=== PATIENT | male | born 1950 | race Caucasian/White ===

== ENCOUNTER 2018-05-05 10:40 | Inpatient (IN) | payer OTHER, MEDICARE ==
[~2018-05-05] VITALS: Ht 182.9 cm; Wt 103.4 kg
[2018-05-05] MEDS ORDERED: ONDANSETRON HCL 4MG/2ML INJ IV STA (11:01)
[2018-05-05] MEDS ORDERED: SODIUM CHLORIDE 0.9% 1,000 ML IV ONE (11:01)
[2018-05-05] MEDS ORDERED: MECLIZINE 25MG TABLET PO ONE (11:15)
[2018-05-05 11:25] LABS: HEMOGLOBIN. 15.1 g/dL (14.0-18.0); MEAN CORPUSCULAR HEMOGLOBIN 30.9 pg (28.0-32.0); MEAN CORPUSCULAR VOLUME 92.3 fL (80.0-94.0); MEAN PLATELET VOLUME 9.4 fl (7.4-10.4); PLATELET 185 x1000/uL (130-400); RED BLOOD CELL COUNT 4.88 mill/uL (4.7-6.1)
[2018-05-05 11:30] LABS: CHLORIDE 109 mEq/L (98-107)
[2018-05-05 11:31] LABS: PARTIAL THROMBOPLASTIN TIME 22.9 sec (23.4-31.0); PROTHROMBIN TIME 10.3 sec (9.1-11.1)
[2018-05-05] MEDS ORDERED: MAGNESIUM 1 G PREMIX 100 ML IV ONE (12:00)
[2018-05-05] MEDS ORDERED: POTASSIUM CHLORIDE 20MEQ TABLET SR PO ONE (12:00)
[2018-05-05 12:10] LABS: PLATELET ESTIMATE NORMAL
[2018-05-05] MEDS ORDERED: HYDROCODONE/ACETAMINOPHEN 5/325MG TABLET PO PRN (12:15)
[2018-05-05] MEDS ORDERED: MAGNESIUM/ALUMINUM HYDROXIDE/SIMETHICONE 30ML UDC PO PRN (12:15)
[2018-05-05] MEDS ORDERED: HYDROMORPHONE HCL/PF 2MG/ML CPJ IV PRN (12:15)
[2018-05-05] MEDS ORDERED: ACETAMINOPHEN 650MG/20.3ML UDC GT PRN (12:15)
[2018-05-05] MEDS ORDERED: ONDANSETRON HCL 4MG/2ML INJ IV PRN (12:15)
[2018-05-05] MEDS ORDERED: DIPHENHYDRAMINE 50MG/ML VIAL IV PRN (12:15)
[2018-05-05] MEDS ORDERED: IPRATROPIUM/ALBUTEROL 0.5-3(2.5)MG/3ML NEB INH PRN (12:15)
[2018-05-05] MEDS ORDERED: ACETAMINOPHEN 325MG TABLET PO PRN (12:15)
[2018-05-05] MEDS ORDERED: CLONIDINE 0.1MG TABLET PO PRN (12:15)
[2018-05-05] MEDS ORDERED: DOCUSATE SODIUM 100MG CAPSULE PO PRN (12:15)
[2018-05-05] MEDS ORDERED: LORAZEPAM 2MG/ML CPJ IV PRN (12:15)
[2018-05-05] MEDS ORDERED: GUAIFENESIN 200MG/10ML SUGAR FREE UDC PO PRN (12:15)
[2018-05-05] MEDS ORDERED: NA PHOS,M-B/NA PHOS,DI-BA ENEMA 118ML PR PRN (12:15)
[2018-05-05] MEDS: LEVOFLOXACIN 500MG PREMIX 100 ML IV SCH ×2 (13:22→15:00)
[2018-05-05] MEDS: ASPIRIN 81MG EC TABLET PO SCH (13:22)
[2018-05-05] MEDS: ENOXAPARIN 40MG/0.4ML SYR SUBCUT SCH (13:24)
[2018-05-05] MEDS ORDERED: ATROPINE SULFATE 1MG/ML VIAL IV PRN (14:45)
[2018-05-05] MEDS ORDERED: LISI-186 PO (15:59)
[2018-05-05] MEDS ORDERED: ATOR40TA70 PO (15:59)
[2018-05-05 16:00] VITALS: BP 112/63
[2018-05-05] MEDS ORDERED: GABA-531 PO (16:01)
[2018-05-05] MEDS: SODIUM CHLORIDE 0.45% 1,000 ML IV SCH (16:32)
[2018-05-05] MEDS ORDERED: DEXTROSE 50% WATER 50ML SYRINGE IV PRN (17:30)
[2018-05-05 18:33] VITALS: BP 112/63
[2018-05-05] MEDS ORDERED: MECLIZINE 25MG TABLET PO PRN (19:15)
[2018-05-05 19:18] LABS: *AMPHETAMINES SCREEN URINE NEGATIVE (NEGATIVE); *BARBITURATES SCREEN URINE NEGATIVE (NEGATIVE); *BENZODIAZEPINES SCREEN URINE NEGATIVE (NEGATIVE); *COCAINE SCREEN URINE NEGATIVE (NEGATIVE); CANNABINOID URINE SCREEN NEGATIVE (NEGATIVE); METHADONE URINE SCREEN NEGATIVE (NEGATIVE); OPIATES URINE SCREEN PRESUMTIVE POSITIVE (NEGATIVE); PHENCYCLIDINE URINE SCREEN NEGATIVE (NEGATIVE)
[2018-05-05 20:00] VITALS: BP_SYST 130; BP_SYST 132; BP_SYST 141; BP_DIAS 82; BP_DIAS 92
[2018-05-05] MEDS: BLOOD SUGAR DIAGNOSTIC STRIP TEST SCH (21:00)
[2018-05-05] MEDS: INSULIN LISPRO 100 UNITS/ML SUBCUT SCH (21:00)
[2018-05-06] VITALS (7 sets, daily range): BP systolic 112–138; BP diastolic 70–96
[2018-05-06] MEDS: BLOOD SUGAR DIAGNOSTIC STRIP TEST SCH ×3 (06:45→17:39)
[2018-05-06] MEDS: INSULIN LISPRO 100 UNITS/ML SUBCUT SCH ×3 (06:45→17:15)
[2018-05-06 06:54] LABS: CLARITY URINE CLEAR (CLEAR); COLOR URINE YELLOW (YELLOW); KETONES URINE NEGATIVE (NEGATIVE); LEUKOCYTE ESTERASE URINE NEGATIVE (NEGATIVE); NITRITE URINE NEGATIVE (NEGATIVE); OCCULT BLOOD URINE NEGATIVE (NEGATIVE); PH URINE 5.5 (4.5-8.0); PROTEIN URINE NEGATIVE (NEGATIVE); SPECIFIC GRAVITY URINE 1.012 (1.005-1.030); UROBILINOGEN URINE 0.2 E.U./dL (0.2-1.0)
[2018-05-06 06:58] LABS: CHLORIDE 111 mEq/L (98-107)
[2018-05-06 06:59] LABS: BASOPHILS % 0.2 % (0.0-2.0); HEMATOCRIT. 44.5 % (42.0-52.0); HEMOGLOBIN. 15.3 g/dL (14.0-18.0); LYMPHOCYTES % 12.3 % (20.0-50.0); MEAN CORPUSCULAR HEMOGLOBIN 31.8 pg (28.0-32.0); MEAN CORPUSCULAR VOLUME 92.2 fL (80.0-94.0); MEAN PLATELET VOLUME 9.6 fl (7.4-10.4); MONOCYTES % 6.7 % (2.0-8.0); NEUTROPHILS % 79.8 % (40.0-76.0); PLATELET 173 x1000/uL (130-400); RED BLOOD CELL COUNT 4.83 mill/uL (4.7-6.1); RED CELL DISTRIBUTION WIDTH 13.2 % (11.6-14.6)
[2018-05-06 07:11] LABS: LDL CHOLESTEROL 47 mg/dL (5-100)
[2018-05-06 07:12] LABS: HDL CHOLESTEROL 44 mg/dL (40-59)
[2018-05-06 07:13] LABS: T4 FREE 0.87 ng/dL (0.76-1.46)
[2018-05-06] MEDS: ASPIRIN 81MG EC TABLET PO SCH (08:51)
[2018-05-06] MEDS: ENOXAPARIN 40MG/0.4ML SYR SUBCUT SCH (08:51)
[2018-05-06] MEDS ORDERED: LEVOFLOXACIN 500MG PREMIX 100 ML IV SCH (16:30)
[2018-05-06] MEDS: SODIUM CHLORIDE 0.45% 1,000 ML IV SCH (17:42)
[2018-05-06] MEDS ORDERED: IOHEXOL-350 100 ML BOTTLE ONE (19:43)
== END 2018-05-06 21:23 | disposition home or self-care (01) | DRG 73 ==
LOC: ER 10:40 → 5WST 12:00 → EDBEDREQ 12:04 → ENRESERV 13:25
PROVIDERS: ADMIT Internal Medicine; ATTEND Internal Medicine
DX: G90.8 Other disorders of autonomic nervous system (principal); G93.41 Metabolic encephalopathy; D72.829 Elevated white blood cell count, unspecified; E11.65 Type 2 diabetes mellitus with hyperglycemia; E66.01 Morbid (severe) obesity due to excess calories; E78.5 Hyperlipidemia, unspecified; E83.42 Hypomagnesemia; E86.0 Dehydration; R00.1 Bradycardia, unspecified; E87.6 Hypokalemia; I11.9 Hypertensive heart disease without heart failure; I65.22 Occlusion and stenosis of left carotid artery; K21.9 Gastro-esophageal reflux disease without esophagitis; Z96.659 Presence of unspecified artificial knee joint; E11.40 Type 2 diabetes mellitus with diabetic neuropathy, unspecified; G89.29 Other chronic pain; M54.9 Dorsalgia, unspecified; Z88.0 Allergy status to penicillin; Z82.49 Family history of ischemic heart disease and other diseases of the circulatory system; Z68.30 Body mass index [BMI] 30.0-30.9, adult; Z90.49 Acquired absence of other specified parts of digestive tract; Z95.1 Presence of aortocoronary bypass graft
CPT/HCPCS: 36415; 70490; 70498; 71045; 80061; 80305; 82962; 83036; 83735; 83880; 84439; 84443; 84484; 85379; 93005; 93306; 93880; 93970; 96365; 96366; 96375; 99285; J1650; J1956; J2405; J3475; J7030; J8597; Q9967